=== PATIENT | female | born 1940 | race Caucasian/White ===

== ENCOUNTER → 2018-12-13 | Day surgery (SDC) | payer MEDICARE, OTHER ==
[~2018-12-13] MED LIST: FLUMAZENIL 0.5 MG/5 ML MDV IVP ONE; FLUMAZENIL 0.5 MG/5 ML MDV IVP PRN; IOPAMIDOL (ISOVUE-300) 100 ML BTL ONE; LIDOCAINE 1% 300 MG/30 ML SDV ONE; MIDAZOLAM 2 MG/2 ML VIAL IVP PRN; MIDAZOLAM 2 MG/2 ML VIAL ONE; NALOXONE HCL 0.4 MG/ML INJ IVP PRN; NALOXONE HCL 0.4 MG/ML INJ ONE; NS 1,000 ML IV SCH; ONDANSETRON 4 MG/2 ML VIAL IVP PRN; OXYCODONE/APAP 5/325 TAB PO PRN; fentaNYL 100 MCG/2 ML INJ IVP PRN; fentaNYL 100 MCG/2 ML INJ ONE
--- NOTE | 2018-12-13 07:29 | PDHPUP ---
History & Physical Update H&P update statement: This history and physical update is based on an assessment of the patient which was completed after admission or registration (within 24 hours), but prior to the surgery/procedure. H&P update: H&P reviewed & patient examined, no change in patient's condition since H&P completed
--- NOTE | 2018-12-13 07:29 | PDPROPOC ---
Sedation Plan of Care Sedation Plan of Care: vital signs stable, mental status noted, patient educated of risks, benefits, alternatives, patient can tolerate sedation ASA Classification: ASA 3 Planned drugs: fentanyl, midazolam Mallampati Score: Class 2 Mallampati Reference Image: Patient passed 3-3-2 rule?: Yes
[2018-12-13 08:26] VITALS: BP 111/53
--- NOTE | 2018-12-13 08:26 | PDCONSULT ---
[employer] Note: NEUROENDOVASCULAR s/p diagnostic angiogram, resting well, no complaints AAOx3 speech fluent strength full, sensation normal groin c/d/i, distal pulses palpable s/p DXA for right MCA bifurcation aneurysm - flat for 3 hours then d/c - can restart elaquis tonight - will have clinic call for followup [facility]
== END | disposition home or self-care (01) ==
LOC: FIMAGING 05:45
PROVIDERS: ATTEND Neurological Surgery
PROC: B31R1ZZ Fluoroscopy of Intracranial Arteries using Low Osmolar Contrast (ICD-10-PCS; principal; 2018-12-13)
PROC: B31F1ZZ Fluoroscopy of Left Vertebral Artery using Low Osmolar Contrast (ICD-10-PCS; principal; 2018-12-13)
PROC: B3181ZZ Fluoroscopy of Bilateral Internal Carotid Arteries using Low Osmolar Contrast (ICD-10-PCS; principal; 2018-12-13)
DX: I67.1 Cerebral aneurysm, nonruptured (principal)
CPT/HCPCS: 99152; 99153; C1769; C1894; J1644; J2250; J2310; J3010; Q9967